=== PATIENT | male | born 1985 | race Caucasian/White ===

== ENCOUNTER 2018-08-16 09:00 | Emergency (ER) | payer MEDICAID, OTHER ==
[~2018-08-16] VITALS: Ht 180.3 cm; Wt 67.8 kg
[2018-08-16] MEDS ORDERED: IBUPROFEN 800 MG TAB PO ONE (10:45)
[2018-08-16] MEDS ORDERED: BUPIVACAINE HCL 0.25% 10 ML VIAL SC ONE (10:45)
[2018-08-16] MEDS ORDERED: METHOCARBAMOL 750 MG TAB PO ONE (10:45)
[2018-08-16] MEDS ORDERED: LIDO5DIS41 TD (12:11)
[2018-08-16] MEDS ORDERED: IBUP80TA PO (12:11)
[2018-08-16] MEDS ORDERED: CYCL5TAB PO (12:11)
[2018-08-16 12:58] VITALS: BP 126/67
== END 2018-08-16 13:03 | disposition home or self-care (01) ==
LOC: M ED 09:00
DX: R51 Headache (principal); M54.2 Cervicalgia; M54.5 Low back pain; F17.210 Nicotine dependence, cigarettes, uncomplicated

== ENCOUNTER 2019-04-30 22:03 | Emergency (ER) | payer MEDICAID, OTHER ==
[~2019-04-30] VITALS: Ht 180.3 cm; Wt 63.6 kg
[~2019-04-30 22:03] MED LIST: CYCL5TAB PO; IBUP80TA PO; LIDO5DIS41 TD
[2019-04-30] MEDS ORDERED: ARIP1TAB4 (22:22)
[2019-04-30] MEDS ORDERED: ONDANSETRON 4MG/2ML VIAL (J2405) IV ONE (22:45)
[2019-04-30] MEDS ORDERED: NS 1,000 ML IV ONE (22:45)
[2019-04-30] MEDS ORDERED: KETOROLAC 30 MG/ML VIAL (J1885) IV ONE (22:45)
[2019-04-30 22:58] LABS: BASO # 0.1 10^3/uL (0.0-0.2); BASO % 0.8 % (0.0-1.0); EOS # 0.3 10^3/uL (0.0-0.5); EOS % 3.3 % (0.0-3.0); HEMATOCRIT 45.2 % (42.0-52.0); HEMOGLOBIN 15.4 g/dl (13.5-17.5); LYMPH # 2.3 10^3/uL (1.5-5.0); LYMPH % 27.4 % (24.0-44.0); MEAN CORPUSCULAR HGB CONC 34.1 g/dl (32.0-36.5); MEAN CORPUSCULAR VOLUME 93.8 fl (80.0-96.0); MONO # 0.5 10^3/uL (0.0-0.8); MONO % 5.6 % (0.0-5.0); NEUTROPHILS # 5.2 10^3/uL (1.5-8.5); NEUTROPHILS % 62.7 % (36.0-66.0); PLATELET COUNT, AUTOMATED 245 10^3/uL (150-450); RED BLOOD COUNT 4.82 10^6/uL (4.30-6.10); WHITE BLOOD COUNT 8.3 10^3/uL (4.0-10.0)
[2019-04-30 23:37] LABS: ALBUMIN 4.7 GM/DL (3.2-5.2); BILIRUBIN,DIRECT 0.1 MG/DL (0.0-0.2); BILIRUBIN,TOTAL 0.3 MG/DL (0.2-1.0); TOTAL PROTEIN 7.7 GM/DL (6.4-8.2)
--- NOTE | 2019-04-30 23:40 | REPVR ---
PROCEDURE INFORMATION: Exam: CT Abdomen And Pelvis Without Contrast Exam date and time: 04/30/2019 11:04 PM Age: 33 years old Clinical indication: Abdominal pain; Flank; Left; Additional info: Left flank pain; R/O stone TECHNIQUE: Imaging protocol: Computed tomography of the abdomen and pelvis without contrast. Radiation optimization: All CT scans at this facility use at least one of these dose optimization techniques: automated exposure control; mA and/or kV adjustment per patient size (includes targeted exams where dose is matched to clinical indication); or iterative reconstruction. COMPARISON: No relevant prior studies available. FINDINGS: Liver: Normal. No mass. Gallbladder and bile ducts: Normal. No calcified stones. No ductal dilation. Pancreas: Normal. No ductal dilation. Spleen: Normal. No splenomegaly. Adrenals: Normal. No mass. Kidneys and ureters: 2 mm left vesicoureteral junction calculus causes minimal left renal collecting system dilatation/hydronephrosis. Non-obstructing left renal calculi measuring up to 3 mm. Stomach and bowel: Unremarkable. No obstruction. No mucosal thickening. Appendix: No evidence of appendicitis. Intraperitoneal space: Unremarkable. No free air. No significant fluid collection. Vasculature: Unremarkable. No abdominal aortic aneurysm. Lymph nodes: Unremarkable. No enlarged lymph nodes. Bladder: Unremarkable as visualized. Reproductive: Unremarkable as visualized. Bones/joints: L3-S1 disc bulge and protrusions with mild moderate stenosis. Soft tissues: Unremarkable. IMPRESSION: 2 mm left vesicoureteral junction calculus causes minimal left renal collecting system dilatation/hydronephrosis. Electronically signed by: Gibson Galdamez On 04/30/2019 23:40:28 PM
[2019-04-30] MEDS ORDERED: KETO10TAB PO (23:59)
[2019-04-30] MEDS ORDERED: NORC1TAB7 PO (23:59)
[2019-05-01] MEDS ORDERED: NORCO 5/325MG TABLET (BULK FOR ED) PO ONE (00:15)
[2019-05-01 00:37] VITALS: BP 117/78
== END 2019-05-01 00:41 | disposition home or self-care (01) ==
LOC: M ED 22:03
DX: N20.1 Calculus of ureter (principal); Z79.899 Other long term (current) drug therapy
CPT/HCPCS: 74176; 80047; 80076; 81001; 83690; 85025; 87086; 93041; 96374; 99284; J1885; J2405